=== PATIENT | female | born 1995 ===

== ENCOUNTER 2018-12-19 17:14 | Emergency (ER) | payer MEDICAID ==
[2018-12-19 17:23] VITALS: BMI 26.6
[2018-12-19 17:26] VITALS: TEMP 98.2
--- NOTE | 2018-12-19 17:58 | C.PDOC ---
History Of Present Illness 23 year old female patient presents to the emergency room complaining of cough for x3 days. Associated symptoms includes vomiting, nausea, pleuritic pain and palpitations. Pt reports +sick contact from daughter who was sick with the flu last week. Pt has vomited this morning and now currently has nausea. Pt denies dysuria, recent travels, diarrhea, GI bleed, hemoptysis and chills. Time Seen by Provider: 12/19/18 17:32 Chief Complaint (Nursing): Palpitations History Per: Patient History/Exam Limitations: no limitations Onset/Duration Of Symptoms: Days (x3) Current Symptoms Are (Timing): Still Present Past Medical History Reviewed: Historical Data, Nursing Documentation, Vital Signs Vital Signs: Last Vital Signs Temp 98.2 F 12/19/18 17:23 Pulse 94 H 12/19/18 17:23 Resp 16 12/19/18 17:23 BP 116/67 12/19/18 17:23 Pulse Ox 99 12/19/18 17:23 - Medical History PMH: Depression Surgical History: Appendectomy - [facility] ARTIF RUPT MEMBRANES NEC (03/09/14) EPISIOTOMY (03/09/14) MONITORING NOS (03/09/14) INDIVIDUAL PSYCHOTHERAPY, BEHAVIORAL (10/21/16) LAPAROSCOP APPENDECTOMY (12/17/14) MANUAL ASSIST DELIV NEC (03/09/14) Family History: States: Unknown Family Hx - Social History Hx Alcohol Use: No Hx Substance Use: No - Immunization History Hx Tetanus Toxoid Vaccination: No Hx Influenza Vaccination: No Hx Pneumococcal Vaccination: No Review Of Systems Except As Marked, All Systems Reviewed And Found Negative. Constitutional: Negative for: Chills, Other (recent travels ) Cardiovascular: Positive for: Palpitations, Other (pleuritic pain ) Respiratory: Positive for: Cough. Negative for: Hemoptysis Gastrointestinal: Positive for: Nausea, Vomiting. Negative for: Diarrhea, Other (GI bleed) Genitourinary: Negative for: Dysuria Physical Exam - Physical Exam Appears: Non-toxic, No Acute Distress Skin: Warm, Dry, No Rash Head: Atraumatic, Normacephalic Eye(s): bilateral: Normal Inspection, PERRL, EOMI Ear(s): Bilateral: Normal Nose: Normal Oral Mucosa: Moist Throat: Normal, No Erythema, No Exudate Neck: Normal ROM, Supple Chest: Symmetrical, Tenderness (+anterior chest wall ) Cardiovascular: Rhythm Regular, No Friction Rub, No Murmur Respiratory: Normal Breath Sounds, No Rales, No Rhonchi, No Stridor Gastrointestinal/Abdominal: Soft, No Tenderness Back: Normal Inspection, No CVA Tenderness Extremity: Normal ROM, No Calf Tenderness, No Swelling Neurological/Psych: Oriented x3, Normal Speech, Normal Motor Gait: Steady ED Course And Treatment O2 Sat by Pulse Oximetry: 99 (RA) Pulse Ox Interpretation: Normal Medical Decision Making Medical Decision Making: Vitals remain WNL's. On re-exam, the patient remains active and alert. Lungs are CTA, heart is RRR, abdomen is soft, non-tender and the patient is tolerating Po well. Follow up with the medical doctor/clinic within 1-2 days. Return if worsened. Disposition Counseled Patient/Family Regarding: Studies Performed, Diagnosis, Need For Followup, Rx Given - Disposition Referrals: [facility] [Outside] [facility] [Outside] Disposition: HOME/ ROUTINE Disposition Time: 19:01 Condition: STABLE Additional Instructions: Follow up with the medical doctor within 1-2 days. Return if worsened. 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 - Scribe Statement The provider has reviewed the documentation as recorded by the Dana Rios Do All medical record entries made by the Dana were at my direction and personally dictated by me. I have reviewed the chart and agree that the record accurately reflects my personal performance of the history, physical exam, medical decision making, and the department course for this patient. I have also personally directed, reviewed, and agree with the discharge instructions and disposition.
[2018-12-19 19:59] VITALS: BP 120/70; PULSE 88; RESP 22
[2018-12-20 09:16] VITALS: O2SAT 99
--- NOTE | 2018-12-20 12:14 | RAD ---
Date of service: 12/19/2018 HISTORY: cough, pleuritic pain COMPARISON: No prior. TECHNIQUE: Chest PA and lateral FINDINGS: LUNGS: No active pulmonary disease. PLEURA: No significant pleural effusion identified. No pneumothorax apparent. CARDIOVASCULAR: No aortic atherosclerotic calcification present. Normal cardiac size. No pulmonary vascular congestion. OSSEOUS STRUCTURES: No significant abnormalities. VISUALIZED UPPER ABDOMEN: Normal. OTHER FINDINGS: None. IMPRESSION: No active disease.
== END 2018-12-19 19:57 | disposition home or self-care (01) ==
LOC: C.ER 17:14
DX: R00.2 Palpitations (principal); J40 Bronchitis, not specified as acute or chronic